=== PATIENT | male | born 1955 | race Caucasian/White ===

== ENCOUNTER → 2025-01-02 | Outpatient (CLI) | payer MEDICARE, BC, SELFPAY ==
--- NOTE | 2025-01-02 10:06 | XR_ITS ---
EXAMINATION: Cervical spine, 5 views Technique: Cervical spine AP, AP odontoid, lateral, bilateral obliques, 5 views Exam date and time: January 02, 2025, 10:10 a.m. INDICATIONS: Neck pain beginning 5 years ago. FINDINGS: Adequate alignment cervical vertebral bodies Moderate to advanced disc narrowing C4-C5, C5-C6 with moderate bilateral neural foraminal stenosis Intact odontoid No fracture IMPRESSION: Moderate to advanced degenerative disc disease C4-C5, C5-C6
--- NOTE | 2025-01-02 10:06 | XR_ITS ---
Examination: Lumbar spine, 5 views Technique: Lumbar spine AP, lateral, coned lateral lower lumbar spine, bilateral obliques 5 views Exam date and time: January 02 2025, 1010 hours INDICATIONS: Low back pain 5 years. FINDINGS: Moderate osteopenia. Moderate to advanced diffuse facet arthropathy. No lumbar fracture. Moderate lumbar spondylosis. Mild diffuse lumbar disc narrowing Chronic mild wedging L5 No spondylolisthesis IMPRESSION: Mild diffuse lumbar degenerative disc disease with spinal stenosis
== END | disposition home or self-care (01) ==
PROVIDERS: PCP Family Medicine; Referring Provider Family Medicine; Visit Provider Family Medicine
DX: M50.321 Other cervical disc degeneration at C4-C5 level (principal); M51.360 Other intervertebral disc degeneration, lumbar region with discogenic back pain only; M48.061 Spinal stenosis, lumbar region without neurogenic claudication
CPT/HCPCS: 72050; 72110